=== PATIENT | female | born 1955 | race Caucasian/White ===

== ENCOUNTER 2020-07-15 17:00 | Emergency (ER) | payer MEDICARE, MEDICAID ==
[~2020-07-15 17:00] MED LIST: ALBUTEROL SUL0.083 % IN; ATENOLOL50 MG PO; CARVEDILOL6.25 MG PO; CEPHALEXIN500 MG PO; CORDARONE/PACE100 MG PO; DIGOXIN0.25 MG PO; DYRENIUM50 MG PO; FOLIC ACID1 MG PO; FRAGMIN SC; FUROSEMIDE40 MG PO; GABAPENTIN100 MG PO; GOLYTELY4000 ML PO; HYDROCO/APAP1 TA9 PO; KLOR-CON M2020 MEQ PO; LANTUS100 MG/ML SC; LORTAB 5-325 MG1 TAB PO; LORTAB 5/3255 MG PO; MAXZIDE-2537.5 MG/TA PO; MEDDOSEPAK PO; OXY1; RHEUMATREX2.5 M1 PO; WARFARIN5 MG PO
[2020-07-15 17:07] VITALS: BP 0/0
== END 2020-07-15 17:07 | disposition expired ==
LOC: ED 17:00 → EDBD 17:00 → ED 17:07
PROC: 5A12012 Performance of Cardiac Output, Single, Manual (ICD-10-PCS; principal; 2020-07-15)
DX: I46.9 Cardiac arrest, cause unspecified (principal); E11.9 Type 2 diabetes mellitus without complications; J44.9 Chronic obstructive pulmonary disease, unspecified; I48.91 Unspecified atrial fibrillation; M06.9 Rheumatoid arthritis, unspecified; B37.2 Candidiasis of skin and nail; R58 Hemorrhage, not elsewhere classified; Z95.0 Presence of cardiac pacemaker; Z79.4 Long term (current) use of insulin